=== PATIENT | male | born 1985 | race Hispanic/Latino ===

== ENCOUNTER → 2024-11-26 | Outpatient (CLI) | payer BC ==
--- NOTE | 2024-11-26 23:17 | HMCIMG ---
EXAMINATION: ULTRASOUND OF THE ABDOMEN WITH DUPLEX SCAN. CLINICAL HISTORY: Pain COMPARISON: None. TECHNIQUE: Real-time grayscale ultrasound images of the abdomen. In addition, color Doppler is medically necessary to perform in order to evaluate vascularity and blood flow. FINDINGS: Liver: Normal in caliber, the right hepatic lobe measures 12.0 cm in the craniocaudal dimension. There is coarse echotexture of the hepatic parenchyma. There is no focal hepatic abnormality or intrahepatic biliary ductal dilatation. The main portal vein measures 1.3 cm. Appropriate hepatopetal flow within the hepatic arteries and portal veins, and hepatofugal flow within the hepatic veins. Velocities in portal, and splenic veins are normal. Doppler indices are as follow: Main portal vein: 37 cm/s Right hepatic vein: 27 cm/s Mid hepatic vein: 53 cm/s Left hepatic vein: 24 cm/s Splenic vein: 30 cm/s at pancreatic body level. Hepatic artery: 108 cm/s and RI 0.62 Gallbladder: Not well visualized. Common bile duct is normal in caliber, measuring 0.2 cm. Spleen is normal in caliber and measures 11.6 x 5.7 x 5.7 cm in craniocaudal, AP and transverse dimensions respectively. No focal lesions. Pancreas: Normal in caliber and echotexture. No calcification or dilated pancreatic duct. The kidneys are normal in caliber, the right kidney measures 11.1 x 5.5 x 5.1 cm and the left kidney measures 11.6 x 6.2 x 4.8 cm in its craniocaudal, AP and transverse dimensions respectively. There is normal renal cortical thickness and cortical echogenicity. There is no renal calculus or hydronephrosis bilaterally. There is TIPS, appears patent and the highest velocity is 109 cm/s. IMPRESSION: Chronic hepatic disease. Normal Doppler of abdomen. Patent TIPS. /Sergio
== END | disposition home or self-care (01) ==
LOC: RAH 09:41
PROVIDERS: ATTEND Internal Medicine
DX: K74.69 Other cirrhosis of liver (principal); K76.82 Hepatic encephalopathy; I85.01 Esophageal varices with bleeding
CPT/HCPCS: 76700; 93975